=== PATIENT | female | born 1950 | race American Indian/Alaskan Native ===

== ENCOUNTER 2018-11-17 08:19 | Outpatient (CLI) | payer MEDICARE ==
[2018-11-17] MEDS ORDERED: XYLOCAINE TOPICAL 4% TP ONE (08:25)
[2018-11-17] MEDS ORDERED: XYLOCAINE 2%/ EPI 1:200,000 INFILTRATI ONE (09:58)
[2018-11-17] MEDS ORDERED: AD OINTMENT TP SCH (10:00)
== END 2018-11-17 08:20 | disposition home or self-care (01) ==
LOC: WOUND 08:19
PROVIDERS: ATTEND Surgery
DX: I87.313 Chronic venous hypertension (idiopathic) with ulcer of bilateral lower extremity (principal); L97.822 Non-pressure chronic ulcer of other part of left lower leg with fat layer exposed; L97.812 Non-pressure chronic ulcer of other part of right lower leg with fat layer exposed; Z90.710 Acquired absence of both cervix and uterus
CPT/HCPCS: 11042; 11045; G0463; 99205

== ENCOUNTER 2018-11-22 08:44 | Outpatient (CLI) | payer MEDICARE ==
--- NOTE | 2018-11-22 20:25 | Vascular Lab Report ---
PROCEDURE: VL VENOUS DUPLEX LE BILAT HISTORY: CHRONIC VENOUS HYPERTENSION WITH ULCER FINDINGS: Real-time ultrasound of the right leg and left leg was performed using grayscale and color Doppler images. These images demonstrate no evidence of deep venous thrombus in the right and left common femoral vei n, superficial femoral vein or popliteal vein. There is a left popliteal cyst 2.2 x 1.1 cm. IMPRESSION: No DVT in either leg Left popliteal cyst This document is electronically signed by Bay Wynn MD., November 22 2018 08:22:42 PM ET
== END 2018-11-22 08:45 | disposition home or self-care (01) ==
LOC: VAS 08:44
PROVIDERS: ATTEND Surgery
DX: M71.22 Synovial cyst of popliteal space [Baker], left knee (principal); I87.313 Chronic venous hypertension (idiopathic) with ulcer of bilateral lower extremity; E78.00 Pure hypercholesterolemia, unspecified; I10 Essential (primary) hypertension; M19.90 Unspecified osteoarthritis, unspecified site; Z90.89 Acquired absence of other organs; Z90.710 Acquired absence of both cervix and uterus
CPT/HCPCS: 93970

== ENCOUNTER 2018-11-25 09:23 | Outpatient (CLI) | payer MEDICARE ==
[2018-11-25] MEDS ORDERED: XYLOCAINE TOPICAL 4% TP ONE (10:00)
== END 2018-11-25 09:24 | disposition home or self-care (01) ==
LOC: WOUND 09:23
PROVIDERS: ATTEND Surgery
DX: I87.313 Chronic venous hypertension (idiopathic) with ulcer of bilateral lower extremity (principal); L97.812 Non-pressure chronic ulcer of other part of right lower leg with fat layer exposed; L97.822 Non-pressure chronic ulcer of other part of left lower leg with fat layer exposed

== ENCOUNTER 2018-12-02 09:34 | Outpatient (CLI) | payer MEDICARE ==
[2018-12-02] MEDS ORDERED: XYLOCAINE TOPICAL 4% TP NR (10:00)
== END 2018-12-02 09:35 | disposition home or self-care (01) ==
LOC: WOUND 09:34
PROVIDERS: ATTEND Surgery
DX: I87.313 Chronic venous hypertension (idiopathic) with ulcer of bilateral lower extremity (principal); L97.812 Non-pressure chronic ulcer of other part of right lower leg with fat layer exposed; L97.822 Non-pressure chronic ulcer of other part of left lower leg with fat layer exposed

== ENCOUNTER 2018-12-09 09:26 | Outpatient (CLI) | payer MEDICARE ==
[2018-12-09] MEDS ORDERED: XYLOCAINE TOPICAL 4% TP ONE (10:00)
== END 2018-12-09 09:27 | disposition home or self-care (01) ==
LOC: WOUND 09:26
PROVIDERS: ATTEND Surgery
DX: I87.313 Chronic venous hypertension (idiopathic) with ulcer of bilateral lower extremity (principal); L97.812 Non-pressure chronic ulcer of other part of right lower leg with fat layer exposed; L97.822 Non-pressure chronic ulcer of other part of left lower leg with fat layer exposed; Z90.710 Acquired absence of both cervix and uterus

== ENCOUNTER 2018-12-16 09:34 | Outpatient (CLI) | payer MEDICARE ==
[2018-12-16] MEDS ORDERED: XYLOCAINE TOPICAL 4% TP ONE (10:00)
== END 2018-12-16 09:35 | disposition home or self-care (01) ==
LOC: WOUND 09:34
PROVIDERS: ATTEND Surgery
DX: I87.313 Chronic venous hypertension (idiopathic) with ulcer of bilateral lower extremity (principal); L97.812 Non-pressure chronic ulcer of other part of right lower leg with fat layer exposed; L97.822 Non-pressure chronic ulcer of other part of left lower leg with fat layer exposed; I87.8 Other specified disorders of veins

== ENCOUNTER 2018-12-22 09:29 | Outpatient (CLI) | payer MEDICARE ==
[2018-12-22] MEDS ORDERED: AD OINTMENT TP SCH (10:00)
[2018-12-22] MEDS ORDERED: XYLOCAINE TOPICAL 4% TP ONE (10:00)
== END 2018-12-22 09:30 | disposition home or self-care (01) ==
LOC: WOUND 09:29
PROVIDERS: ATTEND Surgery
DX: I87.313 Chronic venous hypertension (idiopathic) with ulcer of bilateral lower extremity (principal); L97.822 Non-pressure chronic ulcer of other part of left lower leg with fat layer exposed; L97.812 Non-pressure chronic ulcer of other part of right lower leg with fat layer exposed; I87.8 Other specified disorders of veins; I89.0 Lymphedema, not elsewhere classified
CPT/HCPCS: A6250

== ENCOUNTER 2018-12-30 09:25 | Outpatient (CLI) | payer MEDICARE ==
[2018-12-30] MEDS ORDERED: XYLOCAINE TOPICAL 4% TP ONE (09:41)
== END 2018-12-30 09:26 | disposition home or self-care (01) ==
LOC: WOUND 09:25
PROVIDERS: ATTEND Surgery
DX: I87.313 Chronic venous hypertension (idiopathic) with ulcer of bilateral lower extremity (principal); L97.812 Non-pressure chronic ulcer of other part of right lower leg with fat layer exposed; L97.822 Non-pressure chronic ulcer of other part of left lower leg with fat layer exposed; L97.112 Non-pressure chronic ulcer of right thigh with fat layer exposed; I87.8 Other specified disorders of veins

== ENCOUNTER 2019-01-11 10:08 | Outpatient (CLI) | payer MEDICARE ==
[2019-01-11] MEDS ORDERED: XYLOCAINE TOPICAL 4% TP ONE (10:30)
== END 2019-01-11 10:09 | disposition home or self-care (01) ==
LOC: WOUND 10:08
PROVIDERS: ATTEND Surgery
DX: I87.313 Chronic venous hypertension (idiopathic) with ulcer of bilateral lower extremity (principal); L97.812 Non-pressure chronic ulcer of other part of right lower leg with fat layer exposed; L97.822 Non-pressure chronic ulcer of other part of left lower leg with fat layer exposed; L97.112 Non-pressure chronic ulcer of right thigh with fat layer exposed

== ENCOUNTER 2019-01-25 10:03 | Outpatient (CLI) | payer MEDICARE ==
[2019-01-25] MEDS ORDERED: XYLOCAINE TOPICAL 4% TP ONE (11:00)
== END 2019-01-25 10:04 | disposition home or self-care (01) ==
LOC: WOUND 10:03
PROVIDERS: ATTEND Surgery
DX: T81.89XD Other complications of procedures, not elsewhere classified, subsequent encounter (principal); I87.313 Chronic venous hypertension (idiopathic) with ulcer of bilateral lower extremity; L97.822 Non-pressure chronic ulcer of other part of left lower leg with fat layer exposed; L97.812 Non-pressure chronic ulcer of other part of right lower leg with fat layer exposed; L97.112 Non-pressure chronic ulcer of right thigh with fat layer exposed; I87.8 Other specified disorders of veins; Y83.8 Other surgical procedures as the cause of abnormal reaction of the patient, or of later complication, without mention of misadventure at the time of the procedure

== ENCOUNTER 2019-02-03 09:51 | Outpatient (CLI) | payer MEDICARE ==
[2019-02-03] MEDS ORDERED: XYLOCAINE TOPICAL 4% TP ONE (10:53)
== END 2019-02-03 09:52 | disposition home or self-care (01) ==
LOC: WOUND 09:51
PROVIDERS: ATTEND Surgery
DX: T81.89XD Other complications of procedures, not elsewhere classified, subsequent encounter (principal); I87.313 Chronic venous hypertension (idiopathic) with ulcer of bilateral lower extremity; L97.822 Non-pressure chronic ulcer of other part of left lower leg with fat layer exposed; L97.812 Non-pressure chronic ulcer of other part of right lower leg with fat layer exposed; L97.112 Non-pressure chronic ulcer of right thigh with fat layer exposed; Y83.8 Other surgical procedures as the cause of abnormal reaction of the patient, or of later complication, without mention of misadventure at the time of the procedure

== ENCOUNTER 2019-02-10 10:07 | Outpatient (CLI) | payer MEDICARE ==
[2019-02-10] MEDS ORDERED: XYLOCAINE TOPICAL 4% TP ONE (10:30)
== END 2019-02-10 10:08 | disposition home or self-care (01) ==
LOC: WOUND 10:07
PROVIDERS: ATTEND Surgery
DX: I87.313 Chronic venous hypertension (idiopathic) with ulcer of bilateral lower extremity (principal); L97.822 Non-pressure chronic ulcer of other part of left lower leg with fat layer exposed; L97.811 Non-pressure chronic ulcer of other part of right lower leg limited to breakdown of skin; L97.111 Non-pressure chronic ulcer of right thigh limited to breakdown of skin; I87.8 Other specified disorders of veins

== ENCOUNTER 2019-02-17 10:13 | Outpatient (CLI) | payer MEDICARE ==
[2019-02-17] MEDS ORDERED: XYLOCAINE TOPICAL 4% TP ONE (10:18)
== END 2019-02-17 10:14 | disposition home or self-care (01) ==
LOC: WOUND 10:13
PROVIDERS: ATTEND Surgery
DX: I87.313 Chronic venous hypertension (idiopathic) with ulcer of bilateral lower extremity (principal); L97.822 Non-pressure chronic ulcer of other part of left lower leg with fat layer exposed; L97.811 Non-pressure chronic ulcer of other part of right lower leg limited to breakdown of skin; L97.111 Non-pressure chronic ulcer of right thigh limited to breakdown of skin; I87.8 Other specified disorders of veins

== ENCOUNTER 2019-02-24 09:51 | Outpatient (CLI) | payer MEDICARE ==
[2019-02-24] MEDS ORDERED: XYLOCAINE TOPICAL 4% TP ONE (10:30)
== END 2019-02-24 09:52 | disposition home or self-care (01) ==
LOC: WOUND 09:51
PROVIDERS: ATTEND Surgery
DX: I87.313 Chronic venous hypertension (idiopathic) with ulcer of bilateral lower extremity (principal); L97.822 Non-pressure chronic ulcer of other part of left lower leg with fat layer exposed; L97.811 Non-pressure chronic ulcer of other part of right lower leg limited to breakdown of skin; L97.111 Non-pressure chronic ulcer of right thigh limited to breakdown of skin; I87.2 Venous insufficiency (chronic) (peripheral)

== ENCOUNTER 2019-03-03 09:58 | Outpatient (CLI) | payer MEDICARE | END 2019-03-03 09:59 | disposition home or self-care (01) | LOC: WOUND 09:58 | PROVIDERS: ATTEND Surgery | DX: I87.313 Chronic venous hypertension (idiopathic) with ulcer of bilateral lower extremity (principal); L97.822 Non-pressure chronic ulcer of other part of left lower leg with fat layer exposed; L97.811 Non-pressure chronic ulcer of other part of right lower leg limited to breakdown of skin; L97.111 Non-pressure chronic ulcer of right thigh limited to breakdown of skin; Z90.710 Acquired absence of both cervix and uterus ==

== ENCOUNTER 2019-03-17 09:59 | Outpatient (CLI) | payer MEDICARE ==
[2019-03-17] MEDS ORDERED: XYLOCAINE TOPICAL 4% TP ONE (10:03)
== END 2019-03-17 10:00 | disposition home or self-care (01) ==
LOC: WOUND 09:59
PROVIDERS: ATTEND Surgery
DX: I87.313 Chronic venous hypertension (idiopathic) with ulcer of bilateral lower extremity (principal); L97.822 Non-pressure chronic ulcer of other part of left lower leg with fat layer exposed; L97.811 Non-pressure chronic ulcer of other part of right lower leg limited to breakdown of skin; L97.111 Non-pressure chronic ulcer of right thigh limited to breakdown of skin; Z90.710 Acquired absence of both cervix and uterus

== ENCOUNTER 2019-03-31 10:03 | Outpatient (CLI) | payer MEDICARE ==
[2019-03-31] MEDS ORDERED: XYLOCAINE TOPICAL 4% TP ONE (10:17)
== END 2019-03-31 10:04 | disposition home or self-care (01) ==
LOC: WOUND 10:03
PROVIDERS: ATTEND Surgery
DX: I87.313 Chronic venous hypertension (idiopathic) with ulcer of bilateral lower extremity (principal); L97.822 Non-pressure chronic ulcer of other part of left lower leg with fat layer exposed; L97.811 Non-pressure chronic ulcer of other part of right lower leg limited to breakdown of skin; L97.111 Non-pressure chronic ulcer of right thigh limited to breakdown of skin; Z90.710 Acquired absence of both cervix and uterus

== ENCOUNTER 2019-04-07 09:58 | Outpatient (CLI) | payer MEDICARE | END 2019-04-07 09:59 | disposition home or self-care (01) | LOC: WOUND 09:58 | PROVIDERS: ATTEND Surgery | DX: I87.313 Chronic venous hypertension (idiopathic) with ulcer of bilateral lower extremity (principal); L97.822 Non-pressure chronic ulcer of other part of left lower leg with fat layer exposed; L97.811 Non-pressure chronic ulcer of other part of right lower leg limited to breakdown of skin; L97.111 Non-pressure chronic ulcer of right thigh limited to breakdown of skin; Z90.710 Acquired absence of both cervix and uterus ==

== ENCOUNTER 2019-04-14 09:59 | Outpatient (CLI) | payer MEDICARE ==
[2019-04-14] MEDS ORDERED: XYLOCAINE TOPICAL 4% TP ONE (11:32)
== END 2019-04-14 10:00 | disposition home or self-care (01) ==
LOC: WOUND 09:59
PROVIDERS: ATTEND Surgery
DX: I87.313 Chronic venous hypertension (idiopathic) with ulcer of bilateral lower extremity (principal); L97.822 Non-pressure chronic ulcer of other part of left lower leg with fat layer exposed; L97.811 Non-pressure chronic ulcer of other part of right lower leg limited to breakdown of skin; L97.111 Non-pressure chronic ulcer of right thigh limited to breakdown of skin; Z90.710 Acquired absence of both cervix and uterus

== ENCOUNTER 2019-04-21 10:02 | Outpatient (CLI) | payer MEDICARE | END 2019-04-21 10:03 | disposition home or self-care (01) | LOC: WOUND 10:02 | PROVIDERS: ATTEND Surgery | DX: I87.313 Chronic venous hypertension (idiopathic) with ulcer of bilateral lower extremity (principal); L97.822 Non-pressure chronic ulcer of other part of left lower leg with fat layer exposed; L97.811 Non-pressure chronic ulcer of other part of right lower leg limited to breakdown of skin; L97.111 Non-pressure chronic ulcer of right thigh limited to breakdown of skin; Z90.710 Acquired absence of both cervix and uterus ==

== ENCOUNTER 2019-04-28 10:00 | Outpatient (CLI) | payer MEDICARE ==
[2019-04-28] MEDS ORDERED: XYLOCAINE TOPICAL 4% TP ONE (10:13)
== END 2019-04-28 10:01 | disposition home or self-care (01) ==
LOC: WOUND 10:00
PROVIDERS: ATTEND Surgery
DX: I87.313 Chronic venous hypertension (idiopathic) with ulcer of bilateral lower extremity (principal); L97.822 Non-pressure chronic ulcer of other part of left lower leg with fat layer exposed; L97.811 Non-pressure chronic ulcer of other part of right lower leg limited to breakdown of skin; Z90.710 Acquired absence of both cervix and uterus; I87.8 Other specified disorders of veins

== ENCOUNTER 2019-05-05 10:01 | Outpatient (CLI) | payer MEDICARE ==
[2019-05-05] MEDS ORDERED: XYLOCAINE TOPICAL 4% TP ONE (11:28)
== END 2019-05-05 10:02 | disposition home or self-care (01) ==
LOC: WOUND 10:01
PROVIDERS: ATTEND Surgery
DX: I87.313 Chronic venous hypertension (idiopathic) with ulcer of bilateral lower extremity (principal); L97.812 Non-pressure chronic ulcer of other part of right lower leg with fat layer exposed; L97.821 Non-pressure chronic ulcer of other part of left lower leg limited to breakdown of skin; I87.8 Other specified disorders of veins; Z90.710 Acquired absence of both cervix and uterus

== ENCOUNTER 2019-05-16 09:35 | Outpatient (CLI) | payer MEDICARE ==
[2019-05-16] MEDS ORDERED: XYLOCAINE TOPICAL 4% TP NR (10:00)
== END 2019-05-16 09:36 | disposition home or self-care (01) ==
LOC: WOUND 09:35
PROVIDERS: ATTEND Surgery
DX: I87.313 Chronic venous hypertension (idiopathic) with ulcer of bilateral lower extremity (principal); L97.812 Non-pressure chronic ulcer of other part of right lower leg with fat layer exposed; L97.822 Non-pressure chronic ulcer of other part of left lower leg with fat layer exposed; I87.8 Other specified disorders of veins; Z90.710 Acquired absence of both cervix and uterus

== ENCOUNTER 2019-05-25 09:48 | Outpatient (CLI) | payer MEDICARE | END 2019-05-25 09:49 | disposition home or self-care (01) | LOC: WOUND 09:48 | PROVIDERS: ATTEND Surgery | DX: I87.313 Chronic venous hypertension (idiopathic) with ulcer of bilateral lower extremity (principal); L97.812 Non-pressure chronic ulcer of other part of right lower leg with fat layer exposed; L97.822 Non-pressure chronic ulcer of other part of left lower leg with fat layer exposed; I87.8 Other specified disorders of veins; Z90.710 Acquired absence of both cervix and uterus ==

== ENCOUNTER 2019-06-01 09:33 | Outpatient (CLI) | payer MEDICARE ==
[2019-06-01] MEDS ORDERED: SILVER NITRATE TP ONE (10:00)
[2019-06-01] MEDS ORDERED: XYLOCAINE TOPICAL 4% TP ONE (10:00)
== END 2019-06-01 09:34 | disposition home or self-care (01) ==
LOC: WOUND 09:33
PROVIDERS: ATTEND Surgery
DX: I87.313 Chronic venous hypertension (idiopathic) with ulcer of bilateral lower extremity (principal); L97.812 Non-pressure chronic ulcer of other part of right lower leg with fat layer exposed; L97.821 Non-pressure chronic ulcer of other part of left lower leg limited to breakdown of skin; I87.2 Venous insufficiency (chronic) (peripheral)

== ENCOUNTER 2019-06-29 09:44 | Outpatient (CLI) | payer MEDICARE ==
[2019-06-29] MEDS ORDERED: SILVER NITRATE APPLICATOR 1 EA TP ONE (10:30)
[2019-06-29] MEDS ORDERED: LIDOCAINE (4%) 40 MG/ML TOPICAL SOLN 50 ML BOTTLE TP ONE (10:30)
== END 2019-06-29 09:45 | disposition home or self-care (01) ==
LOC: WOUND 09:44
PROVIDERS: ATTEND Surgery
DX: I87.312 Chronic venous hypertension (idiopathic) with ulcer of left lower extremity (principal); L97.812 Non-pressure chronic ulcer of other part of right lower leg with fat layer exposed; I87.302 Chronic venous hypertension (idiopathic) without complications of left lower extremity; I87.2 Venous insufficiency (chronic) (peripheral)

== ENCOUNTER 2019-07-06 09:47 | Outpatient (CLI) | payer MEDICARE ==
[2019-07-06] MEDS ORDERED: XYLOCAINE TOPICAL 4% TP ONE (09:54)
[2019-07-06] MEDS ORDERED: SILVER NITRATE TP ONE (09:55)
== END 2019-07-06 09:48 | disposition home or self-care (01) ==
LOC: WOUND 09:47
PROVIDERS: ATTEND Surgery
DX: I87.312 Chronic venous hypertension (idiopathic) with ulcer of left lower extremity (principal); L97.812 Non-pressure chronic ulcer of other part of right lower leg with fat layer exposed; I87.302 Chronic venous hypertension (idiopathic) without complications of left lower extremity; I87.2 Venous insufficiency (chronic) (peripheral)

== ENCOUNTER 2019-07-13 09:39 | Outpatient (CLI) | payer MEDICARE ==
[2019-07-13] MEDS ORDERED: SILVER NITRATE TP ONE (10:00)
[2019-07-13] MEDS ORDERED: XYLOCAINE TOPICAL 4% TP ONE (10:00)
== END 2019-07-13 09:40 | disposition home or self-care (01) ==
LOC: WOUND 09:39
PROVIDERS: ATTEND Surgery
DX: I87.312 Chronic venous hypertension (idiopathic) with ulcer of left lower extremity (principal); L97.812 Non-pressure chronic ulcer of other part of right lower leg with fat layer exposed; I87.302 Chronic venous hypertension (idiopathic) without complications of left lower extremity; Z90.710 Acquired absence of both cervix and uterus

== ENCOUNTER 2019-07-20 09:39 | Outpatient (CLI) | payer MEDICARE | END 2019-07-20 09:40 | disposition home or self-care (01) | LOC: WOUND 09:39 | PROVIDERS: ATTEND Surgery | DX: I87.312 Chronic venous hypertension (idiopathic) with ulcer of left lower extremity (principal); L97.812 Non-pressure chronic ulcer of other part of right lower leg with fat layer exposed; I87.302 Chronic venous hypertension (idiopathic) without complications of left lower extremity; Z90.710 Acquired absence of both cervix and uterus ==

== ENCOUNTER 2019-08-10 09:29 | Outpatient (CLI) | payer MEDICARE ==
[2019-08-10] MEDS ORDERED: LIDOCAINE (4%) 40 MG/ML TOPICAL SOLN 50 ML BOTTLE TP ONE (10:00)
== END 2019-08-10 09:30 | disposition home or self-care (01) ==
LOC: WOUND 09:29
PROVIDERS: ATTEND Surgery
DX: I87.311 Chronic venous hypertension (idiopathic) with ulcer of right lower extremity (principal); L97.812 Non-pressure chronic ulcer of other part of right lower leg with fat layer exposed; I87.302 Chronic venous hypertension (idiopathic) without complications of left lower extremity; Z90.710 Acquired absence of both cervix and uterus

== ENCOUNTER 2019-08-24 09:48 | Outpatient (CLI) | payer MEDICARE ==
[2019-08-24] MEDS ORDERED: LIDOCAINE (4%) 40 MG/ML TOPICAL SOLN 50 ML BOTTLE TP ONE (10:30)
== END 2019-08-24 09:49 | disposition home or self-care (01) ==
LOC: WOUND 09:48
PROVIDERS: ATTEND Surgery
DX: I87.312 Chronic venous hypertension (idiopathic) with ulcer of left lower extremity (principal); L97.812 Non-pressure chronic ulcer of other part of right lower leg with fat layer exposed; I87.302 Chronic venous hypertension (idiopathic) without complications of left lower extremity; Z90.710 Acquired absence of both cervix and uterus

== ENCOUNTER 2019-08-31 09:26 | Outpatient (CLI) | payer MEDICARE ==
[2019-08-31] MEDS ORDERED: LIDOCAINE (4%) 40 MG/ML TOPICAL SOLN 50 ML BOTTLE TP ONE (10:00)
== END 2019-08-31 09:27 | disposition home or self-care (01) ==
LOC: WOUND 09:26
PROVIDERS: ATTEND Surgery
DX: I87.313 Chronic venous hypertension (idiopathic) with ulcer of bilateral lower extremity (principal); L97.812 Non-pressure chronic ulcer of other part of right lower leg with fat layer exposed; L97.821 Non-pressure chronic ulcer of other part of left lower leg limited to breakdown of skin; I87.2 Venous insufficiency (chronic) (peripheral)

== ENCOUNTER 2019-09-07 09:36 | Outpatient (CLI) | payer SELFPAY ==
[2019-09-07] MEDS ORDERED: LIDOCAINE (4%) 40 MG/ML TOPICAL SOLN 50 ML BOTTLE TP ONE (10:30)
== END 2019-09-07 09:37 | disposition home or self-care (01) ==
LOC: WOUND 09:36
PROVIDERS: ATTEND Surgery
DX: I87.313 Chronic venous hypertension (idiopathic) with ulcer of bilateral lower extremity (principal); L97.812 Non-pressure chronic ulcer of other part of right lower leg with fat layer exposed; L97.821 Non-pressure chronic ulcer of other part of left lower leg limited to breakdown of skin

== ENCOUNTER 2019-09-13 09:29 | Outpatient (CLI) | payer SELFPAY ==
[2019-09-13] MEDS ORDERED: LIDOCAINE (4%) 40 MG/ML TOPICAL SOLN 50 ML BOTTLE TP ONE (10:03)
== END 2019-09-13 09:30 | disposition home or self-care (01) ==
LOC: WOUND 09:29
PROVIDERS: ATTEND Surgery
DX: I87.313 Chronic venous hypertension (idiopathic) with ulcer of bilateral lower extremity (principal); L97.812 Non-pressure chronic ulcer of other part of right lower leg with fat layer exposed; L97.821 Non-pressure chronic ulcer of other part of left lower leg limited to breakdown of skin; I87.2 Venous insufficiency (chronic) (peripheral)